=== PATIENT | female | born 1955 | race Caucasian/White ===

== ENCOUNTER 2016-12-16 16:34 | Emergency (ER) | payer MEDICAID ==
[~2016-12-16] VITALS: Ht 165.1 cm; Wt 59.0 kg
[~2016-12-16 16:34] MED LIST: ATOR40TA70 PO; GABA-531 PO; HUMALOG SQ; LISI2.5T47 PO; METF10002 PO
[2016-12-16 17:36] VITALS: BP 133/65
== END 2016-12-17 04:00 | disposition left against medical advice (07) ==
LOC: ER 12-17 03:52
DX: M79.662 Pain in left lower leg (principal); Z53.21 Procedure and treatment not carried out due to patient leaving prior to being seen by health care provider

== ENCOUNTER 2016-12-17 10:26 | Emergency (ER) | payer MEDICAID ==
[~2016-12-17] VITALS: Ht 152.4 cm; Wt 60.0 kg
[2016-12-17] MEDS ORDERED: IOHEXOL-350 100 ML BOTTLE ONE (10:38)
[2016-12-17] MEDS ORDERED: SODIUM CHLORIDE 0.9% 10ML VIAL ONE (10:38)
[2016-12-17 11:55] LABS: BASOPHILS % 0.5 % (0.0-2.0); EOSINOPHILS % 2.5 % (0.0-5.0); HEMATOCRIT. 37.9 % (36.0-48.0); HEMOGLOBIN. 12.9 g/dL (12.0-16.0); MEAN CORPUSCULAR HEMOGLOBIN 29.4 pg (28.0-32.0); MEAN CORPUSCULAR VOLUME 86.4 fL (81.0-99.0); MEAN PLATELET VOLUME 8.2 fl (7.4-10.4); MONOCYTES % 6.5 % (2.0-8.0); NEUTROPHILS % 65.5 % (40.0-76.0); PLATELET 229 x1000/uL (130-400); RED BLOOD CELL COUNT 4.38 mill/uL (4.2-5.4); RED CELL DISTRIBUTION WIDTH 13.3 % (11.6-14.6)
[2016-12-17 12:03] LABS: PROTHROMBIN TIME 10.3 sec
[2016-12-17 12:12] LABS: CARBON DIOXIDE 28 mEq/L (21-32); CHLORIDE 106 mEq/L (98-107)
[2016-12-17] MEDS ORDERED: IBUPROFEN 600MG TABLET PO ONE (16:45)
[2016-12-17 17:02] VITALS: BP 131/82
== END 2016-12-17 17:15 | disposition home or self-care (01) ==
LOC: ER 10:28
DX: M79.662 Pain in left lower leg (principal); I70.202 Unspecified atherosclerosis of native arteries of extremities, left leg; K57.90 Diverticulosis of intestine, part unspecified, without perforation or abscess without bleeding; Z98.62 Peripheral vascular angioplasty status; Z86.718 Personal history of other venous thrombosis and embolism; E11.9 Type 2 diabetes mellitus without complications; Z79.4 Long term (current) use of insulin; Z79.84 Long term (current) use of oral hypoglycemic drugs
CPT/HCPCS: 36415; 72191; 73706; 80053; 82962; 85025; 85610; 93971; 99285; A4216; Q9967; Z7610